=== PATIENT | male | born 1995 | race African-American/Black ===

== ENCOUNTER 2024-10-15 15:51 | Emergency (ER) | payer OTHER, SELFPAY ==
--- NOTE | ~2024-10-15 | XR_ITS ---
EXAMINATION: XR chest 2V Exam Date/Time: 10/15/2024 16:10 CDT HISTORY: chest pain Comparison: None. RESULT: Lines, tubes, and devices: None. Lungs and pleura: Clear. Cardiomediastinal silhouette: Stable. Other: No acute osseous or upper abdominal finding. IMPRESSION: No acute cardiopulmonary process. Reviewed, dictated and finalized at location K.
--- OUTSIDE RECORDS SUMMARY | 2024-10-15 15:54 | XMS_ITS | Encounter Summary ---
Author Name [facility] Organization [facility] [place] Address [address] [place] [id number] Selected Encounter This section includes the information on record at [place] for the Encounter. Date/Time Encounter Type Encounter Description Reason Pro vider Source Apr 25, 2024 11:00 AM Outpatient Encounter ADMIN PAT ACTIVTIES (MASNONCT) IHE Encounter Template Text not used by [facility] Encounter Notes: All associated encounter notes This section contains the clinical notes associated to the Encounter. Date/Time Encounter Note(s) Provider Source Apr 25, 2024 11:00 AM C & P EXAMINATION NOTE: LOCAL TITLE: C&P PROVIDER PROGRESS NOTE STANDARD TITLE: C & P EXAMINATION NOTE DATE OF NOTE: APR 25, 2024@11:00 ENTRY DATE: APR 25, 2024@10:07:21 AUTHOR: DEXTER CORMIER: URGENCY: STATUS: COMPLETED Headaches (including Migraine Headaches) Disability Benefits Questionnaire Name of patient/: suzanne field Is this DBQ being completed in conjunction with a [place] [id number], C&P Examination Request? [X] Yes [ ] No How was the examination completed? (check all that apply) [ ] In-person examination [X] Records reviewed [ ] Examination via approved video telehealth [ ] Other, please specify in comments box Comments: ODALYS and Evidence Review Indicate method used to obtain medical information to complete this document: [X] Review of available records in conjunction with an interview with the [place] (without in-person or telehealth examination) using the ODALYS process because the existing medical evidence supplemented with an interview provided sufficient information on which to prepare the questionnaire and such an examination would likely provide no additional relevant evidence. Evidence Review Evidence reviewed (check all that apply): [X] [place] electronic health record [X] [place] e-folder 1. Diagnosis Does the now have or has he/she ever been diagnosed with a headache condition? [X] Yes [ ] No [X] Migraine including migraine variants Date of diagnosis: 2021 2. Medical History a. Describe the history (including onset and course) of the 's headache conditions (brief summary): migraine headaches Classification: Neurological other System Type: INC Rated Name of [place] Disability: migraine headaches Diagnostic Code: 8100 Current Evaluation Percent: 0% Bilateral Code: N/A 07/09 note: Details of onset: is claiming service connection for migraine headache that occur 3-4 times week Denies x-ray. Denies associated symptoms of nausea or vomiting and last less than 1 day. Aggravated by occasional noise and light at times has to go into a dark room for his headaches to lie down approx 4 x per week missed work 9 x this last month due to headaches b. Does the 's treatment plan include taking medication for the diagnosed condition? [X] Yes [ ] No If yes, describe treatment (list only those medications used for the diagnosed condition): mckay 3. Symptoms a. Does the experience headache pain? [X] Yes [ ] No [X] Pulsating or throbbing head pain [X] Pain on both sides of the head b. Does the experience non-headache symptoms associated with headaches? (including symptoms associated with an aura prior to headache pain) [X] Yes [ ] No [X] Sensitivity to light [X] Sensitivity to sound c. Indicate duration of typical head pain [X] Less than 1 day d. Indicate location of typical head pain [X] Both sides of head 4. Prostrating attacks of headache pain Note: For VA purposes, the term prostrating means causing extreme exhaustion, powerlessness, debilitation or incapacitation with substantial inability to engage in ordinary activities. Please complete both questions 4A and 4B. a. Migraine / Non-Migraine- Does the [place] have characteristic prostrating attacks of migraine / non-migraine headache pain? [X] Yes [ ] No If yes, indicate frequency, on average, of prostrating attacks over the last several months: [ ] With less frequent attacks [ ] Once in 2 months [ ] Once every month [X] Greater than once per month b. Does the have completely prostrating and prolonged attacks of migraines/non-migraine pain? [ ] Yes [X] No 5. Other pertinent physical findings, complications, conditions, signs, symptoms and scars a. Does the [place] have any other pertinent physical findings, complications, conditions, signs or symptoms related to any conditions listed in the Diagnosis Section above? [ ] Yes [X] No b. Does the have any scars (surgical or otherwise) related to any conditions or to the treatment of any conditions listed in the Diagnosis Section above? [ ] Yes [X] No c. Comments, if any: No response provided. 6. Diagnostic testing Are there any other significant diagnostic test findings and/or results? [ ] Yes [X] No 7. Functional impact Does the [place]'s headache condition impact his or her ability to work? [X] Yes [ ] No If yes, describe the impact of the [place]'s headache condition, providing one or more examples: has missed 9 days of work this last month due to headaches 8. 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
--- OUTSIDE RECORDS SUMMARY | 2024-10-15 15:54 | XMS_ITS | Clinical Summary ---
Author Organization [facility] Address [address] [place] [address] Care Team Providers Care Recycling Manager Name Role Phone [facility] Primary Care Provider Source Comments [facility] [place],[facility] and [facility] Practices is amultiple site organization consisting of ambulatory clinics and hospital sitesin [place], [place]. This disclosure is being madepursuant to the Care Everywhere program and may not contain all information available regarding this patient. Last updated 18.[facility] [place] Allergies No known active allergies Medications * Be aware that medications may not be up to date on this document. Alwaysverify current medications with the patient. 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 Oxygen Saturation - - Inhaled Oxygen Concentration - - Weight 60.1 kg (132 lb 8 oz) 05/03/2011 8:43 AM 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 OPERATOR Height 164 cm (5' 4.57) 05/03/2011 8:44 AM 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 OPERATOR Body Mass Index 22.35 05/03/2011 8:43 AM 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 Plan of Treatment Health Maintenance Due Date Last Done Comments HIV SCREENING 12/27/2011 HEPATITIS C SCREENING 12/22/2014 DTAP/TDAP/TD VACCINES (1 - Tdap) 12/27/2015 HEPATITIS B VACCINE (1 of 3 - 19+ 3-dose series) 12/27/2015 COVID-19 VACCINE (1 - 2023-2 5 season) 2024 DEPRESSION SCREENING 05/16/2024 INFLUENZA VACCINE (Season Ended) 2025 ZOSTER VACCINE (1 of 2) 2046 HIB VACCINE Aged Out No longer eligi ble based on patient's age to complete this topic HPV VACCINE Aged Out No longer eligi ble based on patient's age to complete this topic MENINGOCOCCAL (Group B) VACC INE SHARED DECISION-MAKING Aged Out No longer eligibl e based on patient's age to complete this topic MENINGOCOCCAL GROUPS A/C/Y/W VACCINE Aged Out No longer eligible b ased on patient's age to complete this topic PNEUMOCOCCAL VACCINE Aged Out No long er eligible based on patient's age to complete this topic Care Teams Recycling Manager Relationship Specialty Start Date End Date [facility] [address] [place] [id number] PCP - General 05/03/11
--- OUTSIDE RECORDS SUMMARY | 2024-10-15 15:54 | XMS_ITS | Clinical Summary ---
Author Organization [facility] Address [address] [place] [address] Care Team Providers Care Director Loan Name Role Phone Unavailable Primary Care Provider Unavailabl e Social History Tobacco Use Types Packs/Day Years Used Date Smoking Tobacco: Never Assessed Sex and Gender Information Value Date Recorded Sex Assigned at Not on file Legal Sex Male 10:33 AM CDT Gender Identity Not on file Sexual Orientation Not on file Plan of Treatment Health Maintenance Due Date Last Done Comments Hepatitis C Virus (HCV) Screening 1996 TdaP Immunization 1996 Human Papillomavirus (HPV) Immunization (1 - Male 3-dose series) 12/27/2011 Influenza Immunization (#1) 2024 SARS-COV-2 Immunization ( - season) 2024 Respiratory Syncytial Virus (RSV) Immunization (Adult) (1 - 1-dose 75+ series) 12/27/2071 Hepatitis B Immunization Completed 998, 03/05/1997, 1996 DTaP/Tdap/Td Immunization Discontinued 2001, 03/31/1999, 08/22/1997, Additional history exists Meningococcal Immunization (ACWY) Aged Out No longer eligible based on patient's age to complete this topic Pneumococcal Immunization Combined Aged Out No longer eligible based on patient's age to complete this topic Rotavirus Immunization Aged Out No lo nger eligible based on patient's age to complete this topic Insurance
--- OUTSIDE RECORDS SUMMARY | 2024-10-15 15:54 | XMS_ITS | Continuity of Care Document ---
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 It does not include entries that were removed or entered in error. Problem Status Onset Date Problem Type Date of Resolution Comments Source Knee pain Active Condition Unknown Organization Hyperopia Active Condition Unknown Organization Obstructive sleep apnea (adult) (pediatric) Active Condition [address] [place] [address] Regular astigmatism Active Condition Unknown Organization Diagnosis: ICD-10-CM Z02.89 Encounter for other administrative examinations Active Diagnosis [facility] Medications Combined list of outpatient medications from Department of [facility] and [facility] facilities.Medications provided include 1) outpatient medications from the last 15 months, and 2) patient-reported medications. Medication Details Route Status Patient Instructions Prescription Expires Prescription Number Last Dispense Date Ordering Provider Order Date Order Qty Source Voltaren 1% topical gel See instruct ions, Apply 2 grams (upper extremit ies) or 4 grams (lower extremit ies) to affected area topicall y four times daily as needed for pain. Max total body dose of 32 grams per day, # 100 g, 3 total refill(s ), Swathi [facility], Pharmacy : [facility] Discont inued 11/29/20222022 100.0 0272C-A [facility] Allergies, Adverse Reactions, Alerts Combined list of allergies from Department of [facility] and Veterans Affairs facilities. It does not include entries that were removed or entered in error. Substance Category Reaction Severity Reaction type Status Date Reported Comments Source No Known Allergies Drug allergy (disorder) active 08/13/2022 Mark Sanchez [place] Immunizations Combined list of available immunizations from the Department of [facility] and Veterans Affairs facilities. Immunization Series Date Given Administered By Site Reaction Lot Number CVX Code Drug Margin Trimmer Status Comments Source anthrax vaccine 5 2021 [id number] [employer] [place] (MIP) complet ed anthrax vaccine DoD Influenza, injectable, quadrivalent, preservative free 1 2020 [id number] (IDB) complet ed Influenza , injectabl e, quadrival ent, preservat darya free DoD SARS-COV-2 (COVID-19) vaccine, mRNA, spike protein, LNP, preservative free, 30 mcg/0.3mL dose 1 2020 UNK 208 Unknown (UNK) Not Given SARS-COV- 2 (COVID-19 ) vaccine, mRNA, spike protein, LNP, preservat darya free, 30 mcg/0.3mL dose DoD Influenza, injectable, quadrivalent, preservative free 1 2019 [id number] 150 Seqirus (SEQ) complet ed Influenza , injectabl e, quadrival ent, preservat darya free DoD influenza, injectable, quadrivalent 2018 [id number] 158 Seqirus complet ed influenza , injectabl e, quadrival ent 03/28/19 Given Ambulat ory Pharmac y influenza, injectable, quadrivalent, contains preservative 1 2018 [id number] 158 Seqirus (SEQ) complet ed influenza , injectabl e, quadrival ent, contains preservat darya DoD anthrax vaccine 2018 zzLef t Arm [id number] 24 Emergent Biosolutions complet ed anthrax vaccine 11/28/18 Given Ambulat ory Pharmac y anthrax vaccine 5 2018 MOE CLARK [id number] 24 [employer] [place] (MIP) complet ed anthrax vaccine DoD anthrax vaccine 2017 zzLef t Arm [id number] 24 [employer] complet ed anthrax vaccine 04/24/18 Given Ambulat ory Pharmac y anthrax vaccine 4 2017 [id number] 24 [employer] [place] (MIP) complet ed anthrax vaccine DoD influenza, injectable, quadrivalent- pf 2017 [id number] 150 Seqirus complet ed influenza , injectabl e, quadrival ent-pf 04/05/18 Given Ambulat ory Pharmac y Influenza, injectable, quadrivalent, preservative free 1 2017 [id number] 150 Seqirus (SEQ) comple t ed Influenza , injectabl e, quadrival ent, preservat darya free DoD hepatitis B adult vaccine 2017 zzRig ht Arm [id number] 43 GlaxoSmithKli ne complet ed hepatitis B adult vaccine 12/30/17 Given Ambulat ory Pharmac y hepatitis B vaccine, adult dosage 3 2017 SAMRA CORTES [id number] 43 [facility] hepatitis B vaccine, adult dosage DoD Slovenian Encephalitis IM 2017 [id number] 134 Novartis Pharmaceutica ls complet ed Slovenian Encephali tis IM 10/28/17 Given Ambulat ory Pharmac y anthrax vaccine 2017 zzLef t Arm [id number] 24 [employer] complet ed anthrax vaccine 10/28/17 Given Ambulat ory Pharmac y vaccinia (smallpox) vaccine 2017 [id number] 75 Sanofi Pasteur Incorporated complet ed vaccinia (smallpox ) vaccine 10/28/17 Given Ambulat ory Pharmac y anthrax vaccine 3 2017 [id number] 24 [employer] [place] (MIP) complet ed anthrax vaccine DoD vaccinia (smallpox) vaccine 1 2017 [id number] 75 (APRIL) complet ed vaccinia (smallpox ) vaccine DoD Slovenian Encephalitis vaccine for intramuscular administratio n 2 2017 [id number] 0E 134 Novartis Pharmaceutica l Gabriel. (NOV) complet ed [place]ian Encephali tis vaccine for intramusc ular administr ation DoD anthrax vaccine 2017 zzRig ht Arm [id number] 24 [employer] complet ed anthrax vaccine 09/26/17 Given Ambulat ory Pharmac y Slovenian Encephalitis IM 2017 zzRig ht Arm [id number] 9E 134 Valneva complet ed Slovenian Encephali tis IM 09/26/17 Given Ambulat ory Pharmac y typhoid Vi capsular polysaccharid e vac 2017 zzRig ht Arm [id number] 101 sanofi pasteur complet ed typhoid Vi capsular polysacch aride vac 09/26/17 Given Ambulat ory Pharmac y anthrax vaccine 2 2017 Unknown, Provider [id number] [employer] [place] (MIP) complet ed anthrax vaccine DoD typhoid Vi capsular polysaccharid e vaccine 1 2017 ALIN SOLER [id number] 101 Sanofi Pasteur (PMC) complet ed typhoid Vi capsular polysacch aride vaccine DoD Slovenian Encephalitis vaccine for intramuscular administratio n 1 2017 ALIN SOLER [id number] [address]E [address] [facility] (INT) complet ed Slovenian Encephali tis vaccine for intramusc ular administr ation DoD hepatitis B adult vaccine 2017 [id number] 43 GlaxoSmithKli ne complet ed hepatitis B adult vaccine 06/29/17 Given Ambulat ory Pharmac y hepatitis B vaccine, adult dosage 2 2017 [id number] 43 SmithKline (SKB) complet ed hepatitis B vaccine, adult dosage DoD tetanus, diphtheria, acellular pertu is 2017 [id number] 115 GlaxoSmithKli ne complet ed tetanus, diphtheri a, acellular pertussis 05/27/17 Given Ambulat ory Pharmac y meningococcal A,C,Y,W-135 (MCV4P) 2017 [id number] 114 sanofi pasteur complet ed meningoco ccal A,C,Y,W-1 35 (MCV4P) 05/27/17 Given Ambulat ory Pharmac y poliovirus vaccine, inactivated 2017 [id number] 10 sanofi pasteur complet ed polioviru s vaccine, inactivat ed 05/27/17 Given Ambulat ory Pharmac y adenovirus vaccine, live 2017 [id number] 143 Teva Pharmaceutica ls complet ed adenoviru s vaccine, live 05/27/17 Given Ambulat ory Pharmac y hepatitis B adult vaccine 2017 [id number] 43 GlaxoSmithKli ne complet ed hepatitis B adult vaccine 05/27/17 Given Ambulat ory Pharmac y poliovirus vaccine, inactivated 1 2017 [id number] 10 Sanofi Pasteur (PMC) complet ed polioviru s vaccine, inactivat ed DoD hepatitis B vaccine, adult dosage 1 2017 [id number] 43 SmithKline (SKB) complet ed hepatitis B vaccine, adult dosage DoD meningococcal polysaccharid e (groups A, C, Y and W-135) diphtheria toxoid conjugate vaccine (MCV4P) 1 2017 [id number] 114 Sanofi Pasteur (PMC) complet ed meningoco ccal polysacch aride (groups A, C, Y and W-135) diphtheri a toxoid conjugate vaccine (MCV4P) DoD tetanus toxoid, reduced diphtheria toxoid, and acellular pertu is vaccine, adsorbed [id number] [place], [place] [address] (SKB) complet ed tetanus toxoid, reduced diphtheri a toxoid, and acellular pertussis vaccine, adsorbed DoD Adenovirus, type 4 and type 7, live, oral 1 2017 [id number] 143 [facility] (BRR) complet ed Adenoviru s, type 4 and type 7, live, oral DoD Influenza, injectable, Madin Ade Canine Kidney, quadrivalent with preservative 1 2017 [id number] 186 Seqirus (SEQ) comple t ed Influenza , injectabl e, Madin [place] Canine Kidney, quadrival ent with preservat darya DoD measles, mumps and rubella virus vaccine 1 2017 UNK 03 Unknown (UNK) Not Given measles, mumps and rubella virus vaccine DoD varicella virus vaccine 1 2017 UNK 21 Unknown (UNK) Not Given varicella virus vaccine DoD hepatitis A vaccine, adult dosage 2017 UNK 52 Unknown (UNK) Not Given hepatitis A vaccine, adult dosage DoD Results Combined list of recent chemistry, hematology and other laboratory results from Department of [employer] and Veterans Affairs, ranging from 15 months to all on record, depending upon the facility. Order Name Results Value Reference Range Date Interpretation Specimen Comments Source Chemistry Iron 74 ug/dL 65 - 175 05/26 N 0049A-A [facility] Chemistry Ferritin Lvl 209.0 ng/mL 8.0 - 388.0 05/26 N 0049A-A [facility] Chemistry TSH, Sensitive 1.977 uIU/mL 0.490 - 4.670 05/26 N 0049A-A [facility] Vital Signs Combined list of inpatient and outpatient Vital Signs from Department of [employer] and Veterans Affairs, ranging from 12 months to all on record, depending upon the facility. Vital Sign Value Date Comments Source Systolic Blood Pressure 99 mm[Hg] 04/01/2022 16:12:[address] [place] [address] Air Field Diastolic Blood Pressure 56 mm[Hg] 04/01/2022 16:12:[address] [place] [address] Air [facility] Temperature Oral 36.7 Kari 04/01/2022 16:12:00 [facility] BP Site Right arm 04/01/2022 16:12:00 [facility] Blood Pressure Manual Automatic 04/01/2022 16:12:00 [facility] Air [facility]ly [facility] Mean Arterial Pressure, Calc 70 mm[Hg] 04/01/2022 16:12:00 [facility] Air Formerly [facility] Peripheral Pulse Rate 61 bpm 04/01/2022 16:12:00 [facility] Air Former[facility] Mean Arterial Pressure, Calc 69 mm[Hg] 06/22/2022 18:58:00 [facility] Peripheral Pulse Rate 59 bpm 06/22/2022 18:58:00 [facility] Air [facility] Respiratory Rate 12 br/min 06/22/2022 18:58:00 [facility] BP Site Right arm 06/22/2022 18:58:00 [facility] Blood Pressure Manual Automatic 06/22/2022 18:58:00 [facility] Systolic Blood Pressure 102 mm[Hg] 06/22/2022 18:58:00 [facility] Air Former[facility] Diastolic Blood Pressure 52 mm[Hg] 06/22/2022 18:58:00 [facility] Temperature Oral 36.6 Kari 02/18/2022 17:36:00 [facility] Air Former[facility] Mean Arterial Pressure, Calc 72 mm[Hg] 02/18/2022 17:36:00 [facility] Air [facility] Peripheral Pulse Rate 56 bpm 02/18/2022 17:36:00 [facility] Air Field Systolic Blood Pressure 94 mm[Hg] 02/18/2022 17:36:00 [facility] Air Field Diastolic Blood Pressure 61 mm[Hg] 02/18/2022 17:36:00 [facility] Air Former[facility] Blood Pressure Manual Automatic 02/18/2022 17:36:00 [facility] Air Former[facility] BP Site Right arm 02/18/2022 17:36:[address] [place] [address] Air Field Respiratory Rate 12 br/min 02/18/2022 17:36:[address] [place] [address] Air [facility]ly [facility] Mean Arterial Pressure, Calc 72 mm[Hg] 08/31/2022 14:19:00 [facility] Air Former[facility] Peripheral Pulse Rate 78 bpm 08/31/2022 14:19:00 [facility] Air Field Respiratory Rate 14 br/min 08/31/2022 14:19:00 [facility] Air Former[facility] BP Site Right arm 08/31/2022 14:19:00 [facility] Systolic Blood Pressure 117 mm[Hg] 08/31/2022 14:19:00 [facility] Former[facility] Diastolic Blood Pressure 50 mm[Hg] 08/31/2022 14:19:[address] [place] [address] Air Formerly [facility] Encounters Combined list of: 1) Encounters from Department of Veterans Affairs facilities going backup to the last 18 months, not all VA inpatient encounters are included; 2) Encounters from the Department of Defense facilities going backup to 280 months. Location Location Details Encounter Type Encounter Number Reason For Visit Attending Provider ADM Date DC Date Status Disposition Source [facility] C Immunizat ions (Post)) OUTPATIENT [id number] RAJAN Sheffield 05/27 Released w/o Limitations [facility](M C Immuniz ations (Post)) [facility] Ambulator y) OUTPATIENT [id number] Notes Entered by: LIZZ MIRANDA 13 Jun 2017 0732 ------- ------- ------- ------- -- SHARON Reddy 06/13 Released with Work/Duty Limitations [facility](T Ambulat ory) [facility]([address]) OUTPATIENT [id number] Notes Entered by: SUJATA MILLER 02 Sep 2017 0712 ------- ------- ------- ------- -- Self Care SUJATA MILLER 09/02 Released w/o Limitations [facility]([address]) [facility]([address]) OUTPATIENT [id number] Notes Entered by: SUJATA MILLER 20 Sep 2017 0606 ------- ------- ------- ------- -- right SHRUTI Vaughn 09/20 Released w/o Limitations [facility]([address]) [facility]([address]) OUTPATIENT [id number] Notes Entered by: ANDRÉS JEAN BAPTISTE 26 Sep 2017 0854 ------- ------- ------- ------- -- [place] [facility] SHRUTI Aguilar 09/26 Released w/o Limitations [facility]([address]) [facility]([address]) OUTPATIENT [id number] Notes Entered by: CADEN CHANDLER 28 Sep 201728 ------- ------- ------- ------- -- ALIN Garcia 09/28 Released w/o Limitations [facility]([address]) [facility]([address]) OUTPATIENT [id number] Notes Entered by: ANGELES BERMUDEZ 11 Oct [id number] ------- ------- ------- ------- -- Ankle and hunter pain ABRAM JAMA 10/11 Released w/o Limitations [facility]([address]) [facility] GUERLINE D Y[facility]IR-[facility] Y[facility]( 1RC) OUTPATIENT [id number] In-proc essing G6PD ANTHRAX JEV SPX G6PD pha LISSETTE PEREZ 10/28 Released w/o Limitations [facility]IR -PYONGT AEK(1RC ) [facility]( [facility] S01 B Silver) OUTPATIENT [id number] Notes Entered by: WILLI CAVAZOS ON [facility] AN 2017 1001 ------- ------- ------- ------- -- PHA WALK IN LASHAE JACKSON A 12/26 Released w/o Limitations [facility] -[facility] S01 B Silver) [facility]DE MOLINAGOOD-P YONGTAEK( Immunizat ions [place]) OUTPATIENT [id number] Notes Entered by: LETICIA CORTES 30 Dec 2017 1003 ------- ------- ------- ------- -- Hep B SAMRA CORTES 12/30 Released w/o Limitations [facility] MOLIANGOOD -[facility]GT [facility]K(Imm unizati ons [place] ) [facility]DE Chicas YAHIR-[facility]( [facility] S01 B Silver) OUTPATIENT [id number] shaving profile LASHAE JACKSON A 01/09 Released w/o Limitations [facility] -[facility]GT [facility] S01 B Silver) [facility] Chicas [facility]( [facility] S01 B Silver) OUTPATIENT [id number] 11en/ri ght ankle sprain GORGE AMAYA 02/07 Released w/o Limitations [facility] -[facility] S01 B Silver) [facility] Chicas [facility]( Hearing Program [place]) OUTPATIENT [id number] Hearing Test YESICA FARIAS 02/10 Released w/o Limitations [facility] -[facility](Hea ring Program [place] ) [facility]DE Chicas [facility]( [facility] S01 B Silver) OUTPATIENT [id number] update profile REA FINNEGAN 02/21 Released w/o Limitations [facility] GUERLINE Chicas YAHIR -PYONGT AEK([facility] S01 B Silver) CLOTILDE GUERLINE Chicas Y[facility]IR-P [facility]( [facility] [place]) OUTPATIENT [id number] ALEXUS Ramirez 06/06 Released w/o Limitations [facility] GUERLINE Chicas [facility]IR -PYONGT AEK(Opt ometry [facility] [place] ) CLOTILDE RUBIOIAN Aviva Y[facility]IR-P [facility]( [facility] S01 B Silver) TELE CONSULT [id number] Notes Entered by: Kristal MENDOZA 01 Sep 2018 1258 ------- ------- ------- ------- -- DA Form 5118 GRACE WEAVER 09/01 Referred for Appointment [facility]DE Chicas [facility] -[facility] S01 B Silver) CLOTILDE RUBIOIAN [facility]( [facility] S01 B Silver) TELE CONSULT [id number] Notes Entered by: Kristal MENDOZA 25 Sep 2018 1025 ------- ------- ------- ------- -- DA Form 5118 GRACE WEAVER 09/25 Released to Self Care [facility]DE MOLINAGOOD -PYONGT AEK([facility] S01 B Silver) [place] Physical [facility] come [facility]) OUTPATIENT [id number] PHILLIP HARVEY 11/21 Released w/o Limitations [place] Phys[place] [place] OUTPATIENT [id number] Immuniz atlauren MILLER JAQUAN CLARE 11/28 Released w/o Limitations [place] [place] [facility] OUTPATIENT [id number] REE, EEG TECH' S LICENSE DANN FONG 12/19 Released w/o Limitations [place] [place] OUTPATIENT [id number] annual hearing TAQUERIACLAUDIA 01/22 Released w/o Limitations [place] OUTPATIENT [id number] follow up SLY LAMAR 01/25 Released w/o Limitations [place] [place] OUTPATIENT [id number] PHA DANN ROBLES 02/21 [place]ased [place]/o Limitations [place] [place] [place] [place] OUT[place]IENT [id number] MOD: possibl e MELISA BARBOUR 04/20 Released w/o Limitations [place] [place] [place] [place] TELE CONSULT [id number] Notes Entered by: MELISA HOLLIS 24 Apr 2019 0832 ------- ------- ------- ------- -- Lab Results MELISA HOLLIS 04/24 [place] [place] [place] [place] OUT[place]IENT [id number] MOD: treatme nt for std VILMA CASTAÑEDA 04/24 [place]ased [place]/o Limitations [place] [place] OUT[place] [id number] DA JONES 08/11 Released w/o Limitations [place] [place] OUTPATIENT [id number] SICKCAL L: RUEL F/U RAUL CASTRO 08/13 Released w/o Limitations [place] [place] [place] OUTPATIENT [id number] Notes Entered by: FAREED LANGSTON 19 Dec 2019 0835 ------- ------- ------- ------- -- ANNUAL VANDANA VILLAR 12/18 [place]ased w/o Limitations [place] OUTPATIENT [id number] CLAUDIA MENG 01/12 Released w/o Limitations [place]) OUTPATIENT [id number] Notes Entered by: Narciso BARAJAS 27 Jan 2021 0816 ------- ------- ------- ------- -- INPROCE DION PEREZ 01/27 Released w/o Limitations [place]) [place] S[facility]C [place]) OUTPATIENT [id number] Chest Pain PHAM TRAVON W 05/01 Released w/o Limitations [place] [place]) [place] [place] OUTPATIENT [id number] Sleep issues NATHSANTIAGOEL W 07/07 Released w/o Limitations [place] [place] [place] OUTPATIENT [id number] Notes Entered by: RAJESH WILKERSON 28 Jul 2021 1008 ------- ------- ------- ------- -- IMM DAVID WILKERSON 07/28 [facility]o Limitations [facility] [place] [place] [place] OUTPATIENT [id number] Bilater al Foot Pain PHAM TRAVON W 09/29 Released w/o Limitations [place]([facility] [place]([facility] [place]) OUTPATIENT [id number] bug bite TRAVON NATH 10/08 Released w/o Limitations [place]([facility] S[facility] [place]) [facility] Outpatient Encounter [id number] 04/25 [facility] Encounter [id number] Diagnos is: ICD-10- CM Z02.89 Encount er for other adminis trative examina tions Kay CORMIER 04/25 [facility] Procedures Combined list of: 1) Procedures from Department of Veterans Affairs facilities going back up to thelast 18 months, not all VA non-surgical procedures are included; 2) All procedures from the Department of Defense facilities. Procedure Procedure Type Code Date Perfomer Comments Sourc e No data available for this section Ambulato ry Pharmacy IMMUNIZATION ADMINISTRATION (INCLUDES PERCUTANEOUS, INTRADERMAL, SUBCUTANEOUS, OR INTRAMUSCULAR INJECTIONS); EACH ADDITIONAL VACCINE (SINGLE OR COMBINATION VACCINE/TOXOID) 2017 DoD INFLUENZA VIRUS VACCINE, TRIVALENT (IIV3), SPLIT VIRUS, PRESERVATIVE FREE, 0.5 ML DOSAGE, FOR INTRAMUSCULAR USE 2017 DoD HEARING SERVICE, MISCELLANEOUS 2017 DoD BRIEF EMOTIONAL/BEHAVIOR AL ASSESSMENT (EG, DEPRESSION INVENTORY, ATTENTION-DEFICIT/ HYPERACTIVITY DISORDER [ADHD] SCALE), WITH SCORING AND DOCUMENTATION, PER STANDARDIZED INSTRUMENT 2021 DoD ANTHRAX VACCINE, FOR SUBCUTANEOUS OR INTRAMUSCULAR USE 2021 [facility] BRIEF EMOTIONAL/BEHAVIOR AL ASSESSMENT (EG, DEPRESSION INVENTORY, ATTENTION-DEFICIT/ HYPERACTIVITY DISORDER [ADHD] SCALE), WITH SCORING AND DOCUMENTATION, PER STANDARDIZED INSTRUMENT 2020 DoD BRIEF EMOTIONAL/BEHAVIOR AL ASSESSMENT (EG, DEPRESSION INVENTORY, ATTENTION-DEFICIT/ HYPERACTIVITY DISORDER [ADHD] SCALE), WITH SCORING AND DOCUMENTATION, PER STANDARDIZED INSTRUMENT 2020 DoD PSYCHOTHERAPY, 30 MINUTES WITH PATIENT 2020 DoD BLOOD PRESSURE MEASURED (CKD)(DM) 2020 DoD TELE ASSESS & MGT SRV PROV QUAL NONPHYS HLTH CARE PRO TO EST PAT,PARENT,GUARD NOT ORIG REL ASSESS & MGT SRV PROV W/IN PREV 7 DAYS NOR LEAD ASSESS & MGT SRV/PX W/IN NXT 24 HR/SOON APT;5-10 MIN MED DIS 2018 DoD TELE ASSESS & MGT SRV PROV QUAL NONPHYS HLTH CARE PRO TO EST PAT,PARENT,GUARD NOT ORIG REL ASSESS & MGT SRV PROV W/IN PREV 7 DAYS NOR LEAD ASSESS & MGT SRV/PX W/IN NXT 24 HR/SOON APT;5-10 MIN MED DIS 2018 DoD SCREENING TEST OF VISUAL ACUITY, QUANTITATIVE, BILATERAL 2018 DoD PURE TONE AUDIOMETRY (THRESHOLD), AUTOMATED; AIR ONLY 2017 DoD IMMUNIZATION ADMINISTRATION (INCLUDES PERCUTANEOUS, INTRADERMAL, SUBCUTANEOUS, OR INTRAMUSCULAR INJECTIONS); 1 VACCINE (SINGLE OR COMBINATION VACCINE/TOXOID) 2017 [facility] COLLECTION OF VENOUS BLOOD BY VENIPUNCTURE 2017 DoD PATIENT EDUCATION, NOT OTHERWISE CLASSIFIED, NON-PHYSICIAN PROVIDER, GROUP, PER SESSION 2020 [facility] EAR PROTECTOR ATTENUATION MEASUREMENTS 2019 [facility] CRUTCHES UNDERARM, OTHER THAN WOOD, ADJUSTABLE OR FIXED, PAIR, WITH PADS, TIPS AND HANDGRIPS 2019 DoD SCREENING TEST OF VISUAL ACUITY, QUANTITATIVE, BILATERAL 2018 [facility] EAR MOLD/INSERT, NOT DISPOSABLE, ANY TYPE 2018 [facility] PATIENT EDUCATION, NOT OTHERWISE CLASSIFIED, NON-PHYSICIAN PROVIDER, GROUP, PER SESSION 2018 [facility] DETERMINATION OF REFRACTIVE STATE 2018 DoD IMMUNIZATION ADMINISTRATION (INCLUDES PERCUTANEOUS, INTRADERMAL, SUBCUTANEOUS, OR INTRAMUSCULAR INJECTIONS); 1 VACCINE (SINGLE OR COMBINATION VACCINE/TOXOID) 2018 [facility] Ophthalmological New Patient Start Comprehensive Care Ophthalmological New Patient Start Comprehensive Care [id number] 2018 DANN FONG [facility] Determination Of Refractive State Determination Of Refractive State 40904 2018 DANN FONG [facility] Supervised Injection Intramuscular Supervised Injection Intramuscular 08305 2018 JAQUAN MILLER [facility] Immunization Administration One Vaccine Immunization Administration One Vaccine 03429 2018 JAQUAN MILLER [facility] Non-Physician Phone Call To Patient/Provider Brief (5-10min) Non-Physician Phone Call To Patient/Provider Brief (5-10min) [id number] 2018 MEG EDWARDSALEKSANDER ALVARADO [facility] Non-Physician Phone Call To Patient/Provider Brief (5-10min) Non-Physician Phone Call To Patient/Provider Brief (5-10min) [id number] 2018 GRACE WEAVER [facility] Screening Test Of Visual Acuity, Quantitative, Bilateral Screening Test Of Visual Acuity, Quantitative, Bilateral 05228 2018 ALEXUS SOLO [facility] Threshold Audiogram (Pure Tone) Automated Threshold Audiogram (Pure Tone) Automated [id number] 2017 YESICA FARIAS [facility] Immunization Administration One Vaccine Immunization Administration One Vaccine 49490 2017 SAMRA CORTES -Hepatitis B Vaccine (Active); 20 Years and Above x 1 - Name of vaccine HEP-B. Dose 1ML. Route IM. Site RD. Lot number :[id number]. Expiration date : 01/18/2020. Margin Trimmer :[email or web address]. Administrating personnel Zara Nye. Administrating location [facility]. Zip [address]. VIS date 12/03/2015. VIS date and VIS provide to patient prior to Immunizations. Vaccine education given, patient verbalized understanding. [facility] Venipuncture Venipuncture 67265 2017 TORIBIO REID [facility] Vaccines Viral Slovenian Encephalitis Inactivated, Intramuscular Vaccines Viral Slovenian Encephalitis Inactivated, Intramuscular 24240 2017 JEANETTE [facility] Vaccines Vaccines [address] [facility] Immunization Administration One Vaccine Immunization Administration One Vaccine [address] [facility] Immunization Administration Each Additional Vaccine Immunization Administration Each Additional Vaccine 54014 2017 JEANETTE [facility] Vaccines Viral Slovenian Encephalitis Inactivated, Intramuscular Vaccines Viral Slovenian Encephalitis Inactivated, Intramuscular 11697 2017 ALIN SOLER Slovenian Encephalitis IM; Series #: 1; .5 mL; IM; Right Arm; Mfg: DidLog; Lot: [id number]. [facility] Immunization Administration One Vaccine Immunization Administration One Vaccine 69563 2017 ALIN SOLER [facility] Immunization Administration Each Additional Vaccine Immunization Administration Each Additional Vaccine 22735 2017 ALIN SOLER [facility] Vaccines Vaccines 82052 2017 ALIN SOLER Vaccinia (Smallpox); Series #: 1; .1 mL; Other; Right Arm; Mfg: Corimmun; Lot: [id number]. [facility] Typhoid Vaccine Vi Capsular Polysaccharide, For Intramus Use Typhoid Vaccine Vi Capsular Polysaccharide, For Intramus Use 38193 2017 ALIN SOLER Typhoid, ViCPs; Series #: 1; .5 mL; IM; Right Arm; Mfg: Sanofi Pasteur; Lot: [id number]. [facility] Immunization Admin Intranasal / Oral Each Additional Vaccine Immunization Admin Intranasal / Oral Each Additional Vaccine 68649 2017 [facility] Vaccines Adenovirus Type 4 Live, For Oral Use Vaccines Adenovirus Type 4 Live, For Oral Use 67516 2017 [facility] Vaccines Adenovirus Type 7 Live, For Oral Use Vaccines Adenovirus Type 7 Live, For Oral Use 95920 2017 [facility] Immunization Administration Each Additional Vaccine Immunization Administration Each Additional Vaccine 33113 2017 [facility] Vaccines Viral Polio, Inactivated (Salk) Vaccines Viral Polio, Inactivated (Salk) 80777 2017 [place] Tdap Vaccine Tdap Vaccine 15770 2017 [place] [facility] Immunization Administration One Vaccine Immunization Administration One Vaccine 49947 2017 [place] [facility] Threshold Audiogram (Pure Tone) Automated Threshold Audiogram (Pure Tone) Automated 0208T CLAUDIA MENG [facility] Patient education, not otherwise cla ified, non-physician provider, group, per se ion CLAUDIA MENG [facility] Ear mold/insert, not disposable, any type SLY LAMAR [facility] Waiver services; not otherwise specified (NOS) PORTIA LIVINGSTON [facility] Ear Protector Attenuation Measurements Ear Protector Attenuation Measurements 03744 VANDANA VILLAR [facility] Psychiatric Evaluation Review of Records and Reports Psychiatric Evaluation Review of Records and Reports 64344 ALFA PATRICIA [facility] A e ment & Intervention Blood Pre ure Measured Assessment & Intervention Blood Pressure Measured DION HERNANDEZ [facility] Immunization Administration One Vaccine Immunization Administration One Vaccine 58491 DAVID WILKERSON [facility] Social History Combined list of available smoking, tobacco, and other social history from Department of Defense and Veterans Affairs facilities. Social History Type Response Date Comment Sourc e Sex Representation Male (finding) 01/30/2020 Un known Organization Tobacco Never-cigarette user Cigarette use:. Never-other tobacco user (not cigarettes) Other Tobacco use:. Ambulatory Pharmacy Sexual Orientation Ambula tory Pharmacy Gender identity Ambulator y Pharmacy This section is an empty social history section. [facility] Assessment and Plan Combined list of future care activities from Department of Defense and Veterans Affairs facilities (e.g., assessment and plan notes, appointments, orders, and referrals). Additional future care activities may be listed in the Plan of Care section. Result Assessment and Plan Date Source Assessment and Plan Extracted from:Title : Chris Riley [facility] - eye exam/myopia Author: SUJATA DAVID OD Date: 11/29/22 1. H ypermetropia, left eye No glasses needed at this time due to good entering uncorrected [facility] at distance and near, minimal refractive error, and no patient complaints. Good ocular health on u ndilated f undus exam. Recommend patient return to clinic in 12-18 months for comprehensive eye exam. 2. R egular astigmatism, left eye * see plan for h yperopia Extracted from:Title: 2-3 [facility] Clinic Note Author: STEPHEN SCHAEFFER MD Date: 08/31/22 1. O bstructive sleep apnea (adult) (pediatric) Morning headaches are likely secondary to uncontrolled sleep apnea. P atient counseled to u se his CPAP machine consistently and daily. Agree with Excedrin Migraine o r other oxok-cxa-brutyrr medication p er patient preference. Patient also counseled to increase his hydration. Symptoms unlikely to be migraines. Stephen Schaeffer M.D. CPT, , [facility], [place] Board of Internal Medicine Certified, Flight Surgeon 2-3 AVN REGT, [facility] [employer], [address] [place] [address] Division, [place], [place] Extracted from:Title: Knee Pain Author: MELANIE WILKERSON PA-C Date: 06/22/22 1. P ain in left knee 26 y/o ADM with 3x years of anterior atraumatic knee pain. Pain worsened by knee flexion/ extension activities. SM denies instability or catching/ locking of knee. No pain with hyperextension or maximal flexion. PE not indicative of ligamentous or meniscal injury. S/Sx consistent with PFPS. Previously referred to PT who recommended their Running Class; SM was lost to f/u. Will place 2nd referral. No profile needed at this time. Ordered: Referral Request 2.0 2. P ain in right knee Ordered: Referral Request 2.0 Extracted from:Title: 2-3 [facility] Clinic Note Author: STEPHEN SCHAEFFER MD Date: 04/01/22 1. I nsomnia 26-year-old male here for difficulty falling asleep a nd staying asleep. Occasionally when he takes melatonin he misses formation because of excessive drowsiness. He endorses loud snoring and some apneic e vents. His stop-bang score is greater than 4. He also endorse some recent stressors in his life, in the family, and he missed the funerals. He is engaged in behavioral health for therapy. Will evaluate him with a sleep study. Patient counseled on sleep hygiene. Opportunity for questions was provided and all questions were answered.? Orders: Referral Request 2.0 Stephen Schaeffer M.D. [facility], [facility], Internal Medicine Flight Surgeon 2-3 [facility], [facility] [employer], [address] [place] [address] Division, [place], [place] Extracted from:Title: 2-3 Clinic Note Author: STEPHEN SCHAEFFER MD Date: 02/18/22 Knee pain 26 y/o M w/ non-traumatic knee pain associated with running. Will treat with voltaren gel. Will also refer him to PT for strengthening and conditioning exercises. Ordered: diclofenac topical(Voltaren 1% topical gel), See instructions, Apply 2 grams (upper extremities) or 4 grams (lower extremities) to affected area topically four times daily as needed for pain. Max total body dose of 32 grams per day, # 100 g, 3 total refill(s), Maintenance, Apply 2 grams (upper e... Referral Request 2.0 Stephen Schaeffer M.D. [facility], [facility], Internal Medicine, Flight Surgeon 2-3 [employer], [address] [place] [address] Extracted from:Title: Office Clinic Note Author: LILO COOL AuD Date: 12/03/21 EXAM, FORMAL OCCUPATIONAL HEALTH PROGRAM INCLUDING HEARING CONSERVATION PROGRAM, PERIODIC FOR CONTINUED SURVEILLANCE FOR OCCUPATIONAL WORKPLACE EXPOSURE 10/15/[address] [place] [address] [facility] Assessment and Plan Extracted from:Title : Chris Riley AA - eye exam/myopia Author: SUJATA DAVID OD Date: 11/29/22 1. H ypermetropia, left eye No glasses needed at this time due to good entering uncorrected VA at distance and near, minimal refractive error, and no patient complaints. Good ocular health on u ndilated f undus exam. Recommend patient return to clinic in 12-18 months for comprehensive eye exam. 2. R egular astigmatism, left eye * see plan for h yperopia Extracted from:Title: 2-3 [facility] Clinic Note Author: STEPHEN SCHAEFFER MD Date: 08/31/22 1. O bstructive sleep apnea (adult) (pediatric) Morning headaches are likely secondary to uncontrolled sleep apnea. P atient counseled to u se his CPAP machine consistently and daily. Agree with Excedrin Migraine o r other ahqh-uip-zblyboc medication p er patient preference. Patient also counseled to increase his hydration. Symptoms unlikely to be migraines. Stephen Schaeffer M.D. [facility], , [facility], [place] Board [employer] Internal Medicine Certified, Flight Surgeon 2-3 [employer], [address] [place] [address] Extracted from:Title: Knee Pain Author: MELANIE WILKERSON PA-C Date: 06/22/22 1. P ain in left knee 26 y/o ADM with 3x years of anterior atraumatic knee pain. Pain worsened by knee flexion/ extension activities. SM denies instability or catching/ locking of knee. No pain with hyperextension or maximal flexion. PE not indicative of ligamentous or meniscal injury. S/Sx consistent with PFPS. Previously referred to PT who recommended their Running Class; SM was lost to f/u. Will place 2nd referral. No profile needed at this time. Ordered: Referral Request 2.0 2. P ain in right knee Ordered: Referral Request 2.0 Extracted from:Title: 2-3 [facility] Clinic Note Author: STEPHEN SCHAEFFER MD Date: 04/01/22 1. I nsomnia 26-year-old male here for difficulty falling asleep a nd staying asleep. Occasionally when he takes melatonin he misses formation because of excessive drowsiness. He endorses loud snoring and some apneic e vents. His stop-bang score is greater than 4. He also endorse some recent stressors in his life, in the family, and he missed the funerals. He is engaged in behavioral health for therapy. Will evaluate him with a sleep study. Patient counseled on sleep hygiene. Opportunity for questions was provided and all questions were answered.? Orders: Referral Request 2.0 Stephen Schaeffer M.D. [facility], [facility], Internal Medicine Flight Surgeon 2-3 [employer] [employer], [address] [place] [address] Extracted from:Title: 2-3 Clinic Note Author: STEPHEN SCHAEFFER MD Date: 02/18/22 Knee pain 26 y/o M w/ non-traumatic knee pain associated with running. Will treat with voltaren gel. Will also refer him to PT for strengthening and conditioning exercises. Ordered: diclofenac topical(Voltaren 1% topical gel), See instructions, Apply 2 grams (upper extremities) or 4 grams (lower extremities) to affected area topically four times daily as needed for pain. Max total body dose of 32 grams per day, # 100 g, 3 total refill(s), Maintenance, Apply 2 grams (upper e... Referral Request 2.0 Stephen Schaeffer M.D. [facility], [facility], Internal Medicine, Flight Surgeon 2-3 [employer], [address] [place] [address] Extracted from:Title: Office Clinic Note Author: LILO COOL AuD Date: 12/03/21 EXAM, FORMAL OCCUPATIONAL HEALTH PROGRAM INCLUDING HEARING CONSERVATION PROGRAM, PERIODIC FOR CONTINUED SURVEILLANCE FOR OCCUPATIONAL WORKPLACE EXPOSURE 10/15/[address] [place], [place] [address] Functional Status Combined list of recent functional and cognitive assessments recorded at Department of Defense and Veterans Affairs (VA).VA Functional Jerauld Measurement (FIM) Scale: 1 = Total Assistance (Subject = 0% +), 2 = Maximal Assistance (Subject = 25% +), 3 = Moderate Assistance (Subject = 50% +), 4 = Minimal Assistance (Subject = 75% +), 5 = Supervision, 6 = Modified Jerauld (Device), 7 = Complete Jerauld (Timely, Safely). Assessment Date/Time Source Assessment Type Assessment Skill Assessment Score Assessment Details FUNCTIONAL 01/19/23 Home Dietary Supplements Captured No
--- NOTE | 2024-10-15 16:01 | ECG_ITS ---
Test Date: 2024-10-15 16:04:32 Measurements Intervals [place] Rate: 64 P: 63 AR: 139 QRS: 78 QRSD: 89 T: 33 QT: 359 QTc: 372 Interpretive Statements SINUS RHYTHM ST ELEVATION IN DIFFUSE LEADS, PROBABLY EARLY REPOLARIZATION BORDERLINE ECG No previous ECG available for comparison Electronically Signed On 10-15-2024 20:47:32 CDT by Neel Cm D.O.
[2024-10-15 16:11] VITALS: BP 135/92; PULSE 69; RESP 16; TEMP 36.6; O2SAT 99
[2024-10-15 16:24] LABS: Basophils Percent Auto 0.3 % (0.2-1.2); Eosinophils Percent Auto 0.6 % (0-4.4); Hematocrit 43.2 % (42.0-52.0); Hemoglobin 14.6 g/dL (14.0-18.0); Lymphocytes Absolute Auto 1.33 K/mm3 (0.9-3.2); Lymphocytes Percent Auto 37.8 % (18.3-44.2); Mean Corpuscular HGB Conc 33.8 g/dl (32-36); Mean Corpuscular Hemoglobin 29.6 pg (26-34); Mean Corpuscular Volume 87.4 fl (80-100); Mean Platelet Volume 9.4 fl (7.4-10.4); Monocytes Absolute Auto 0.4 K/mm3 (0.1-0.6); Monocytes Percent Auto 9.9 % (2.6-8.5); Neutrophils Absolute Auto 1.8 K/mm3 (1.3-6.7); Neutrophils Percent Auto 51.4 % (45.5-73.1); Platelet Count Result 202 k/mm3 (150-375); Red Blood Count 4.94 M/mm3 (4.6-6.20); Red Cell Distribution Width 12.3 % (11.5-14.5); White Blood Count 3.5 K/mm3 (4.5-10.0)
[2024-10-15 16:37] LABS: Alanine Aminotransferase 22 U/L (6-50); Albumin Level 4.6 g/dL (3.5-5.1); Alkaline Phosphatase 78 U/L (38-126); Anion Gap 9 mmol/L (4-12); Aspartate Amino Transferase 52 U/L (17-59); Bilirubin,Total 0.5 mg/dL (0.2-1.3); Blood Urea Nitrogen 13 mg/dL (9-20); Calcium 9.6 mg/dL (8.4-10.2); Carbon Dioxide 28 mmol/L (22-30); Chloride 104 mmol/L (98-107); Estimated CRCL calculation 81 ml/min; Estimated Glomerular Filt Rate > 60; Glucose 88 mg/dL (65-110); INR 1.1; Lipase 259 U/L (23-300); Prothrombin Time 14.2 Seconds (11.1-14.7); Sodium 141 mmol/L (137-145)
[2024-10-15 16:47] LABS: Troponin I < 0.012 ng/mL (0.000-0.034)
[2024-10-15 17:57] VITALS: BP 137/61; PULSE 67; RESP 23; O2SAT 100
[2024-10-15 18:02] VITALS: BP 106/83; PULSE 69; RESP 24; O2SAT 100
[2024-10-15] MEDS: KETOROLAC (*BKC) 60 MG/2 ML VIAL IM (18:26)
--- NOTE | 2024-10-15 18:26 | ED_ITS ---
HPI - Chest Pain General Chief Complaint: Chest Pain Stated Complaint: R Upper chest pain with rad to neck/back Time Seen by Provider: 10/15/24 17:59 Source: patient Mode of arrival: ambulatory Limitations: no limitations History of Present Illness HPI narrative: Patient is a 28 y/o male who presents to the ED with c/o R sided chest pain. Patient reports he has been having intermittent pain throughout his right upper chest since Tuesday. States the pain occasionally radiates through to his back and yesterday he had pain radiate up into his neck. He tried taking Tylenol yesterday which did improve his pain slightly. No other significant aggravating or alleviating factors. Does note he has been doing a different work out routine lately. Denies cough, cold sx's, fevers, SOB, pain or swelling in legs, hx of heart issues. Related Data Allergies Allergy/AdvReac Type Severity Reaction Status Date / Time No Known Allergies Allergy Verified 10/15/24 15:52 Review of Systems 2 Review of Systems: All systems reviewed & are unremarkable except as noted in HPI. All systems reviewed & are unremarkable except as noted in HPI and below Exam 2 Narrative: GENERAL: Well appearing, well-nourished, non-toxic, in no acute distress. HEAD: Normocephalic, atraumatic. RESPIRATORY: Airway patent, respirations nonlabored. Clear to auscultation bilaterally, no rales, rhonchi, wheezing. No focal lung sounds. CARDIOVASCULAR: Regular rate and rhythm without murmurs, rubs, or gallops. ABDOMINAL: Soft, nontender, nondistended. Normoactive BS. MUSCULOSKELETAL: Moves all extremities. No gross deformities. Very minimal upper right-sided anterior chest wall tenderness to palpation. No peripheral edema. No calf tenderness. SKIN: Warm, dry, normal color. NEURO: A&O X3. Speech clear. PSYCHIATRIC: Appropriate mood and affect. Normal interaction. Course Vital Signs Vital signs: Vital Signs Temperature 97.8 F 10/15/24 16:11 Pulse Rate 69 10/15/24 16:11 Respiratory Rate 16 10/15/24 16:11 Blood Pressure 135/92 H 10/15/24 16:11 Pulse Oximetry 99 10/15/24 16:11 Oxygen Delivery Room Air 10/15/24 16:11 Temperature 97.8 F 10/15/24 16:11 Pulse Rate 62 10/15/24 20:00 Respiratory Rate 29 H 10/15/24 20:00 Blood Pressure 126/44 L 10/15/24 20:00 Pulse Oximetry 100 10/15/24 20:00 Oxygen Delivery Room Air 10/15/24 18:00 MDM - Chest Pain MDM Narrative Medical decision making narrative: R upper chest pain/back/neck for several days EKG with early repolarization, no concerning ST changes. Troponin undetectable. Low suspicion for ACS. HEART score = 1 based on EKG PERC negative, low suspicion for PE. No evidence of DVT on exam. Denying shortness of breath. Remainder basic laboratory studies were unremarkable. Software Test Technician 1.3. CK was obtained as patient did report new workout routine with muscle pains. This resulted markedly elevated to 3662. Discussed this with patient, diagnosis of rhabdomyolysis. Advised will need IV fluid hydration and likely admission to hospital. Patient reports he does not wish to stay in the hospital. He states he is feeling anxious about being here and is ready to go. States he feels fine otherwise. Advised if patient wished to leave the facility, that he would need to sign out against medical advice. Discussed risks of signing AMA, including , disability, kidney/liver injury, worsening rhabdomyolysis, etc. Patient voiced understanding of risks and would still like to sign out AMA. He is alert oriented x4, of sound mind, capable of making his own decisions. AMA paperwork was signed. Advised patient to avoid further exercise, creatine supplements, and advised very close f/u with pcp for further eval and repeat lab check. Advised patient can return at any time to resume evaluation. Left the facility in stable condition. Medical Records Data Attestation: I reviewed the patient's medical records. Lab Data Attestation: I reviewed the patient's lab results. 10/15/24 16:12 10/15/24 16:12 Labs: Lab Results 10/15/24 Range/Units 16:12 WBC 3.5 L (4.5-10.0) K/mm3 RBC 4.94 (4.6-6.20) M/mm3 Hgb 14.6 (14.0-18.0) g/dL Hct 43.2 (42.0-52.0) % MCV 87.4 (80-100) fl MCH 29.6 (26-34) pg MCHC 33.8 (32-36) g/dl RDW 12.3 (11.5-14.5) % Plt Count 202 (150-375) k/mm3 MPV 9.4 (7.4-10.4) fl Immature Gran % (Auto) 0.0 (0-0.5) % Neut % (Auto) 51.4 (45.5-73.1) % Lymph % (Auto) 37.8 (18.3-44.2) % Fisher % (Auto) 9.9 H (2.6-8.5) % Eos % (Auto) 0.6 (0-4.4) % Baso % (Auto) 0.3 (0.2-1.2) % Lymph # (Auto) 1.33 (0.9-3.2) K/mm3 Fisher # (Auto) 0.4 (0.1-0.6) K/mm3 Eos # (Auto) 0.0 (0-0.3) K/mm3 Baso # (Auto) 0.0 (0.0-0.1) K/mm3 Abs Immat Gran (auto) 0.00 (0.00-0.031) K/mm3 Absolute Neuts (auto) 1.8 (1.3-6.7) K/mm3 Absolute Nucleated RBC 0.000 (0.0-0.012) K/mm3 Nucleated RBC % 0.0 (0.0-0.2) % PT 14.2 (11.1-14.7) Seconds INR 1.1 APTT 30.0 (22.3-36.8) Seconds Sodium 141 (137-145) mmol/L Potassium 4.0 (3.4-5.0) mmol/L Chloride 104 (98-107) mmol/L Carbon Dioxide 28 (22-30) mmol/L Anion Gap 9 (4-12) mmol/L BUN 13 (9-20) mg/dL Creatinine 1.30 (0.7-1.3) mg/dL Estim Creat Clear Calc 81 ml/min Estimated GFR > 60 (59 - ) Glucose 88 (65-110) mg/dL Calcium 9.6 (8.4-10.2) mg/dL Total Bilirubin 0.5 (0.2-1.3) mg/dL AST 52 (17-59) U/L ALT 22 (6-50) U/L Alkaline Phosphatase 78 (38-126) U/L Total Creatine Kinase 3662 H (55-170) U/L Troponin I < 0.012 (0.000-0.034) ng/mL Total Protein 8.0 (6.3-8.2) g/dL Albumin 4.6 (3.5-5.1) g/dL Lipase 259 (23-300) U/L Imaging Data Attestation: I personally reviewed and interpreted this imaging study as follows: Radiologist's impression: ITS Impressions Chest X-Ray 10/15/24 16:24 IMPRESSION: No acute cardiopulmonary process. ECG Data EKG #1: Attestation: I personally reviewed and interpreted this ECG as follows: ECG completion date: 10/15/24 ECG completion time: 16:04 EKG Interpretation: normal rate (64), sinus rhythm and non-specific ST changes (early repol) Discharge Plan Discharge Clinical Impression: Atypical chest pain Rhabdomyolysis Qualifiers: Rhabdomyolysis type: non-traumatic Qualified Code(s): M62.82 - Rhabdomyolysis Patient Disposition: Left Against Medical Advice Condition: Guarded Prognosis Instructions: Antibiotic Form, Angina (ED), Rhabdomyolysis (ED), Chest Wall Pain (ED) Additional Instructions: You were found to be in rhabdomyolysis today. It was recommended that you stay in the hospital for further evaluation and IV fluid hydration. You are declining this and leaving the hospital against medical advice. Stay very well hydrated at home. You will need to follow-up closely with a primary care doctor to have your labs repeated. Avoid working out any further until labs repeated, avoid any further creatine supplement. Patient Language: [place] Follow-up/Referrals: PHYSICIAN,SOCIAL MEDIA SPECIALIST [Primary Care Provider] - Ramirez Oconnor MD [Physician] - (PRIMARY CARE) Time of Disposition: 19:05 Quality HEART score for chest pain patients History: slightly suspicious ECG: non specific repolarization disturbance/LBTB/PM Age: < or = to 45 years Risk factors: no risk factors known Troponin: < or = to 1x normal limit Heart score: 1
[2024-10-15 19:14] LABS: Creatine Kinase 3662 U/L (55-170)
--- OUTSIDE RECORDS SUMMARY | 2024-10-15 19:19 | XMS_ITS | Clinical Summary ---
Author Organization [facility] Address [address] [place] [address] Care Team Providers Care Performance Test Engineer Name Role Phone [facility] ([facility]) Primary Care Provider Source Comments [facility] and Associated Physician Practices is amultiple site organization consisting of ambulatory clinics and hospital sitesin [place], [place], [place] and [place]. This disclosure is being madepursuant to the Care Everywhere program and may not contain all information available regarding this patient. Last updated 18.[facility] Allergies No known active allergies Medications * Be aware that medications may not be up to date on this document. Alwaysverify current medications with the patient. No known medications Social History Tobacco Use Types Packs/Day Years Used Date Smoking Tobacco: Never Assessed Sex and Gender Information Value Date Recorded Sex Assigned at Not on file Legal Sex Male 12:39 PM ICT DEVELOPMENT MANAGER Gender Identity Not on file Sexual Orientation Not on file Last Filed Vital Signs Vital Sign Reading Time Taken Comments Blood Pressure 100/70 05/03/2011 8:45 AM ICT DEVELOPMENT MANAGER Pulse 62 05/03/2011 8:45 AM ICT DEVELOPMENT MANAGER Temperature - - Respiratory Rate 16 05/03/2011 8:45 AM ICT DEVELOPMENT MANAGER Oxygen Saturation - - Inhaled Oxygen Concentration - - Weight 60.1 kg (132 lb 8 oz) 05/03/2011 8:43 AM ICT DEVELOPMENT MANAGER Height 164 cm (5' 4.57) 05/03/2011 8:44 AM ICT DEVELOPMENT MANAGER Body Mass Index 22.35 05/03/2011 8:43 AM ICT DEVELOPMENT MANAGER Plan of Treatment Health Maintenance Due Date [...] age to complete this topic Care Teams Performance Test Engineer Relationship Specialty Start Date End Date [facility] ([facility]) [address] [place] [id number] PCP - General 05/03/11
--- OUTSIDE RECORDS SUMMARY | 2024-10-15 19:19 | XMS_ITS | Clinical Summary ---
Author Organization [facility] Address [address] [place] [address] Care Team Providers Care Travograph Operator Name Role Phone Unavailable Primary Care Provider [...]
[2024-10-15 19:37] VITALS: BP 126/44; PULSE 60; RESP 12; O2SAT 100
--- NOTE | 2024-10-15 19:56 | PC.NURSE ---
Per TAMIKA Veras pt is requesting to leave AMA. RN went into pt room to have pt sign AMA paperwork and go over instructions to help pt due to his diagnosis and leaving AMA. Pt asks RN if he is going to if he does leave. RN states it is recommended you stay and that your condition may worsen if you don't. Pt states as long as I am not going to right now I want to leave. RN states we can't force him to stay but it is recommended. RN instructed pt that if he is gong to leave that he should stay hydrated at home and to follow up with PCP to have labs repeated. Rn further instructed pt to avoid working out ny further until labs are repeated and avoid any further creatine supplements. Pt verbalizes understanding and would still like to leave AMA at this time.
[2024-10-15 20:00] VITALS: BP 126/44; PULSE 62; RESP 29; O2SAT 100
== END 2024-10-15 20:02 | disposition left against medical advice (07) ==
PROVIDERS: Emergency Provider Physician Assistant
DX: M62.82 Rhabdomyolysis (principal); R07.89 Other chest pain
CPT/HCPCS: 36415; 71046; 80053; 82550; 83690; 84484; 85025; 85610; 85730; 93005; 96372; 99284; J1885

== ENCOUNTER 2024-10-19 06:48 | Observation (INO) | payer SELFPAY ==
[2024-10-19] VITALS (8 sets, daily range): BP systolic 118–134; BP diastolic 47–98; PULSE 57–68; RESP 16–18; TEMP 36.6–37; O2SAT 98–100; BMI 25.9
--- OUTSIDE RECORDS SUMMARY | 2024-10-19 06:50 | XMS_ITS | Clinical Summary ---
Author Organization [facility] Address [address] [place] [address] Care Team Providers Care Trans Router Name Role Phone [facility], Mother [facility] Child (Sihf) Primary Care Provider Source Comments [facility] and Associated Physician Practices is amultiple site organization consisting of ambulatory clinics and hospital sitesin [place], [place], [place] and [place]. This disclosure is being madepursuant to the Care Everywhere program and may not contain all information available regarding this patient. Last updated 18.[facility] Allergies No known active allergies Medications * Be aware that medications may not be up to date on this document. Alwaysverify current medications with the patient. No known medications Social History Tobacco Use Types Packs/Day Years Used Date Smoking Tobacco: Never Assessed Sex and Gender Information Value Date Recorded Sex Assigned at Not on file Legal Sex Male 12:39 PM SALES FLOOR MANAGER Gender Identity Not on file Sexual Orientation Not on file Last Filed Vital Signs Vital Sign Reading Time Taken Comments Blood Pressure 100/70 05/03/2011 8:45 AM SALES FLOOR MANAGER Pulse 62 05/03/2011 8:45 AM SALES FLOOR MANAGER Temperature - - Respiratory Rate 16 05/03/2011 8:45 AM SALES FLOOR MANAGER Oxygen Saturation - - Inhaled Oxygen Concentration - - Weight 60.1 kg (132 lb 8 oz) 05/03/2011 8:43 AM SALES FLOOR MANAGER Height 164 cm (5' 4.57) 05/03/2011 8:44 AM SALES FLOOR MANAGER Body Mass Index 22.35 05/03/2011 8:43 AM SALES FLOOR MANAGER Plan of Treatment Health Maintenance Due [...] age to complete this topic Care Teams Trans Router Relationship Specialty Start Date End Date [facility] Child ([facility]ihf) [address] [place] [id number] PCP - General 05/03/11
--- OUTSIDE RECORDS SUMMARY | 2024-10-19 06:50 | XMS_ITS | Clinical Summary ---
Author Organization [facility] Address [address] [place] [address] Care Team Providers Care Business Intelligence Analyst Name Role Phone Unavailable Primary Care Provider [...]
--- OUTSIDE RECORDS SUMMARY | 2024-10-19 07:48 | XMS_ITS | Clinical Summary ---
Author Organization [facility] Address [address] [facility] [place] [address] Care Team Providers Care Small Products Ii Assembler Name Role Phone Unavailable Primary Care Provider [...]
--- OUTSIDE RECORDS SUMMARY | 2024-10-19 07:48 | XMS_ITS | Clinical Summary ---
Author Organization [facility] Address [address] 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 This disclosure is being madepursuant to the Care Everywhere program and may not contain all information available regarding this patient. Last updated 18.[facility] [address] Allergies No known active allergies Medications * Be aware that medications may not be up to date on this document. Alwaysverify current medications with the patient. 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 Gender Identity Not on file Sexual Orientation Not on file Last Filed Vital Signs Vital Sign Reading Time Taken Comments Blood Pressure 100/70 05/03/2011 8:45 AM RETAIL FIELD SUPERVISOR Pulse 62 05/03/2011 8:45 AM RETAIL FIELD SUPERVISOR Temperature - - Respiratory Rate 16 05/03/2011 8:45 AM RETAIL FIELD SUPERVISOR Oxygen Saturation - - Inhaled Oxygen Concentration - - Weight 60.1 kg (132 lb 8 oz) 05/03/2011 8:43 AM RETAIL FIELD SUPERVISOR Height 164 cm (5' 4.57) 05/03/2011 8:44 AM RETAIL FIELD SUPERVISOR Body Mass Index 22.35 05/03/2011 8:43 AM RETAIL FIELD SUPERVISOR Plan of Treatment Health Maintenance Due Date [...] age to complete this topic Care Teams Name Plate Stamping Machine Operator Relationship Specialty Start Date End Date [facility] Child ([facility]ih[facility]) [address] [place] [id number] PCP - General 05/03/11
[2024-10-19 07:55] LABS: Basophils Percent Auto 0.6 % (0.2-1.2); Eosinophils Absolute Auto 0.1 K/mm3 (0-0.3); Eosinophils Percent Auto 1.9 % (0-4.4); Hematocrit 43.6 % (42.0-52.0); Hemoglobin 14.6 g/dL (14.0-18.0); Immature Granulocyte Absolute 0.03 K/mm3 (0.00-0.031); Immature Granulocyte Percent A 0.6 % (0-0.5); Lymphocytes Absolute Auto 2.44 K/mm3 (0.9-3.2); Lymphocytes Percent Auto 52.2 % (18.3-44.2); Mean Corpuscular HGB Conc 33.5 g/dl (32-36); Mean Corpuscular Hemoglobin 29.3 pg (26-34); Mean Corpuscular Volume 87.6 fl (80-100); Mean Platelet Volume 9.3 fl (7.4-10.4); Monocytes Absolute Auto 0.5 K/mm3 (0.1-0.6); Monocytes Percent Auto 10.9 % (2.6-8.5); Neutrophils Absolute Auto 1.6 K/mm3 (1.3-6.7); Neutrophils Percent Auto 33.8 % (45.5-73.1); Platelet Count Result 208 k/mm3 (150-375); Red Blood Count 4.98 M/mm3 (4.6-6.20); Red Cell Distribution Width 12.3 % (11.5-14.5); White Blood Count 4.7 K/mm3 (4.5-10.0)
[2024-10-19 08:03] LABS: Alanine Aminotransferase 23 U/L (6-50); Albumin Level 4.6 g/dL (3.5-5.1); Alkaline Phosphatase 84 U/L (38-126); Anion Gap 10 mmol/L (4-12); Aspartate Amino Transferase 55 U/L (17-59); Bilirubin,Total 0.5 mg/dL (0.2-1.3); Blood Urea Nitrogen 13 mg/dL (9-20); Carbon Dioxide 25 mmol/L (22-30); Chloride 104 mmol/L (98-107); Estimated CRCL calculation 85 ml/min; Estimated Glomerular Filt Rate > 60; Glucose 92 mg/dL (65-110); Potassium 4.3 mmol/L (3.4-5.0); Sodium 139 mmol/L (137-145); Total Protein 8.3 g/dL (6.3-8.2)
--- NOTE | 2024-10-19 08:18 | ED_ITS ---
HPI - General Adult General Chief complaint: Recheck/Abnormal Lab/Rx Stated complaint: CK recheck Time Seen by Provider: 10/19/24 07:08 History of Present Illness HPI narrative: Patient is a 28-year-old male who presents ER for further evaluation of rhabdomyolysis. Recently diagnosed with rhabdo and signed out AMA. He went home and drank a lot of Pedialyte as well as liquid IVs. He reports he has had clear urine. Body aches have decreased. He is not using his creatinine supplement. Related Data Allergies Allergy/AdvReac Type Severity Reaction Status Date / Time No Known Allergies Allergy Verified 10/19/24 06:49 Review of Systems 2 Review of Systems: All systems reviewed & are unremarkable except as noted in HPI and below Constitutional: Constitutional: Reports no additional constitutional complaints Cardiovascular: Cardiovascular: Reports no additional cardiovascular complaints Respiratory: Respiratory: Reports no additional respiratory complaints Musculoskeletal: Musculoskeletal: Reports no additional musculoskeletal complaints [facility] Past Medical History Medical History (Updated 10/19/24 @ 12:15 by Charles Lopes MD) Healthy adult male Social History Social History Smoking status: Former smoker Alcohol intake: never Substance use: never Do You Feel Safe in your Home?: Yes Lack of Transportation: No Lack of Food: Never True Current Housing: Decline to Answer Concerned About Future Housing: Decline to Answer Difficulty Paying Gas/Electric Bills: Decline to Answer Difficulty Paying for Meds: Decline to Answer Currently Unemployed: Decline to Answer Education: Decline to Answer Difficulty w/ Childcare or Family Care: Decline to Answer Spiritual care concerns: No Exam 2 Narrative: GENERAL: Well-appearing, well-nourished, and in no acute distress. HEAD: Normocephalic, atraumatic. ENT: Mucous membranes moist. CHEST: Clear to auscultation. No respiratory distress. HEART: Regular rate and rhythm. Normal peripheral pulses. ABDOMEN: Soft, nontender, nondistended. EXTREMITIES: Normal range of motion. No edema. NEURO: Alert and oriented x3. PSYCH: Normal mood and affect. Course Course Emergency Course: CK still elevated despite aggressive hydration. Admit for observation and continued hydration. Vital Signs Vital signs: Vital Signs Temperature 98.6 F 10/19/24 06:53 Pulse Rate 68 10/19/24 06:53 Respiratory Rate 17 10/19/24 06:53 Blood Pressure 134/50 L 10/19/24 06:53 Pulse Oximetry 99 10/19/24 06:53 Oxygen Delivery Room Air 10/19/24 06:53 Temperature 97.8 F 10/19/24 11:38 Pulse Rate 65 10/19/24 11:38 Respiratory Rate 16 10/19/24 11:38 Blood Pressure 118/58 L 10/19/24 11:38 Pulse Oximetry 98 10/19/24 11:38 Oxygen Delivery Room Air 10/19/24 16:47 Medical Decision Making Vital Signs Vital Signs: Vital Signs Temperature 98.6 F 10/19/24 06:53 Pulse Rate 68 10/19/24 06:53 Respiratory Rate 17 10/19/24 06:53 Blood Pressure 134/50 L 10/19/24 06:53 Pulse Oximetry 99 10/19/24 06:53 Oxygen Delivery Room Air 10/19/24 06:53 Temperature 97.8 F 10/19/24 11:38 Pulse Rate 65 10/19/24 11:38 Respiratory Rate 16 10/19/24 11:38 Blood Pressure 118/58 L 10/19/24 11:38 Pulse Oximetry 98 10/19/24 11:38 Oxygen Delivery Room Air 10/19/24 16:47 Lab Data 10/19/24 07:41 10/19/24 07:41 Labs: Lab Results 10/19/24 10/19/24 Range/Units 07:41 10:43 WBC 4.7 (4.5-10.0) K/mm3 RBC 4.98 (4.6-6.20) M/mm3 Hgb 14.6 (14.0-18.0) g/dL Hct 43.6 (42.0-52.0) % MCV 87.6 (80-100) fl MCH 29.3 (26-34) pg MCHC 33.5 (32-36) g/dl RDW 12.3 (11.5-14.5) % Plt Count 208 (150-375) k/mm3 MPV 9.3 (7.4-10.4) fl Immature Gran % (Auto) 0.6 H (0-0.5) % Neut % (Auto) 33.8 L (45.5-73.1) % Lymph % (Auto) 52.2 H (18.3-44.2) % [place] % (Auto) 10.9 H (2.6-8.5) % Eos % (Auto) 1.9 (0-4.4) % Baso % (Auto) 0.6 (0.2-1.2) % Lymph # (Auto) 2.44 (0.9-3.2) K/mm3 [place] # (Auto) 0.5 (0.1-0.6) K/mm3 Eos # (Auto) 0.1 (0-0.3) K/mm3 Baso # (Auto) 0.0 (0.0-0.1) K/mm3 Abs Immat Gran (auto) 0.03 (0.00-0.031) K/mm3 Absolute Neuts (auto) 1.6 (1.3-6.7) K/mm3 Absolute Nucleated RBC 0.000 (0.0-0.012) K/mm3 Nucleated RBC % 0.0 (0.0-0.2) % Sodium 139 (137-145) mmol/L Potassium 4.3 (3.4-5.0) mmol/L Chloride 104 (98-107) mmol/L Carbon Dioxide 25 (22-30) mmol/L Anion Gap 10 (4-12) mmol/L BUN 13 (9-20) mg/dL Creatinine 1.24 (0.7-1.3) mg/dL Estim Creat Clear Calc 85 ml/min Estimated GFR > 60 (59 - ) Glucose 92 (65-110) mg/dL Calcium 10.0 (8.4-10.2) mg/dL Total Bilirubin 0.5 (0.2-1.3) mg/dL AST 55 (17-59) U/L ALT 23 (6-50) U/L Alkaline Phosphatase 84 (38-126) U/L Total Creatine Kinase 2239 H 1555 H (55-170) U/L Total Protein 8.3 H (6.3-8.2) g/dL Albumin 4.6 (3.5-5.1) g/dL Discharge Plan Discharge Clinical Impression: Rhabdomyolysis Patient Disposition: Still a Patient Condition: Stable
[2024-10-19 08:33] LABS: Creatine Kinase 2239 U/L (55-170)
[2024-10-19] MEDS: SODIUM CHLORIDE 0.9% IV 1,000 ML 999 ML IV CONT ×3 (08:52→22:59)
[2024-10-19 11:01] LABS: Creatine Kinase 1555 U/L (55-170)
[2024-10-19] MEDS: SODIUM CHLORIDE 0.9% IV 1,000 ML 200 ML IV CONT (11:30)
--- NOTE | 2024-10-19 12:31 | P.HP_ITS ---
H&P: HPI History of Present Illness Date/Time: 10/19/24 12:31 Chief Complaint: Rhabdomyolysis Narrative: 28-year-old previously healthy male presents the hospital with rhabdomyolysis. Patient was seen in the emergency room on 10/15/2024 and was diagnosed with rhabdomyolysis. The patient has decided to leave AMA an try aggressive fluid hydration at home. He states that he planned on an active weekend and wanted to check his CK prior. In the ED his CK was 2239 patient received 2 L normal saline with recheck at 1555. Patient agree to medical admission for further management of rhabdomyolysis. Patient states that he sleeps about 8 hours a night and is very physically active. He states that he started taking a new creatine supplement supplement also had pre workout in it. Last Tuesday he started using 2 scoops and do not increase his water intake. He states that he did his regular workout. On Tuesday he started feeling muscle pains which did not improve so he presented to the hospital. Review of Systems Review of Systems: 12 systems were reviewed and are negativ e except for as per HPI. [facility] Past Medical History Medical History (Updated 10/19/24 @ 12:15 by Charles Lopes MD) Healthy adult male Social History Social History Smoking status: Former smoker Alcohol intake: never Substance use: never Do You Feel Safe in your Home?: Yes Lack of Transportation: No Lack of Food: Never True Current Housing: Decline to Answer Concerned About Future Housing: Decline to Answer Difficulty Paying Gas/Electric Bills: Decline to Answer Difficulty Paying for Meds: Decline to Answer Currently Unemployed: Decline to Answer Education: Decline to Answer Difficulty w/ Childcare or Family Care: Decline to Answer Spiritual care concerns: No Meds Home Medications and Allergies Allergies Allergy/AdvReac Type Severity Reaction Status Date / Time No Known Allergies Allergy Verified 10/19/24 06:49 Vital Signs Vital Signs - 24 hr 10/19/24 06:53 10/19/24 06:57 10/19/24 06:57 Temperature 98.6 F Pulse Rate 68 Respiratory Rate 17 16 Blood Pressure 134/50 L 134/50 L Pulse Oximetry 99 99 100 Oxygen Delivery Room Air 10/19/24 07:02 10/19/24 07:17 10/19/24 07:43 Temperature Pulse Rate Respiratory Rate Blood Pressure 128/68 133/98 H 126/67 Pulse Oximetry 100 100 Oxygen Delivery 10/19/24 08:01 10/19/24 11:38 Temperature 97.8 F Pulse Rate 65 Respiratory Rate 16 Blood Pressure 124/78 118/58 L Pulse Oximetry 99 98 Oxygen Delivery Exam Narrative: General: well appearing, appears stated age. HEENT: normocephalic, atraumatic. Mucous membranes moist. EOMI, PERRLA, bilateral sclera anicteric, no conjunctival injection. Neck supple without JVD, lymphadenopathy, or bruit. Respiratory: clear to ascultation bilaterally. No rales/rhonic/wheezes. Cardiovascular: Regular rate and rhythm, normal S1-S2 upon ascultation. No murmurs, rubs, or clicks. PMI is nondisplaced, capillary refill less than 3 second. Abdomen: Soft, round, no pulsatile masses, nondistended and nontender. No rebound, no guarding. No CVA tenderness, no hepatosplenomegaly. Bowel sounds present to all four quadrants. No high pitch or tinkling sounds, resonant to percussion. Extremities: No cyanosis, clubbing, or edema present. Pulses are palpable 2/2. Active ROM to all four extremities. Neuro: Alert and orientated x 4. PERRLA. Cranial nerves 2-12 intact without focal deficit. Skin: Warm, dry, and intact, without rash, erythema, or lesion. Psych: pleasant, cooperative, normal speech, normal affect, no hallucinations, no dysarthia H&P: Results Labs Labs: Short CBC 10/19/24 Range/Units 07:41 WBC 4.7 (4.5-10.0) K/mm3 Hgb 14.6 (14.0-18.0) g/dL Hct 43.6 (42.0-52.0) % Plt Count 208 (150-375) k/mm3 BMP 10/19/24 07:41 Sodium 139 Potassium 4.3 Chloride 104 Carbon Dioxide 25 BUN 13 Creatinine 1.24 Glucose 92 Calcium 10.0 Cardiac Enzymes 10/19/24 10/19/24 Range/Units 07:41 10:43 Total Creatine Kinase 2239 H 1555 H (55-170) U/L Liver Function 10/19/24 Range/Units 07:41 Total Bilirubin 0.5 (0.2-1.3) mg/dL AST 55 (17-59) U/L ALT 23 (6-50) U/L Alkaline Phosphatase 84 (38-126) U/L Albumin 4.6 (3.5-5.1) g/dL Assessment and Plan Assessment and plan (1) Rhabdomyolysis: Code(s): M62.82 - Rhabdomyolysis Status: Acute Assessment and Plan: 2 L IV fluids received in ED Repeat CK in a.m. Aggressive fluid hydration with IV and oral Patient educated on not taking pre workout, not doing max dose of supplements, and adequate fluid hydration Quality VTE Prophylaxis VTE prophylaxis: mechanical ordered If No VTE Prophylaxis Answer both mechanical and pharmacologic: Reason no pharmacologic proph: low risk/not indicated Hospitalist MIPS Advance Care Plan I have confirmed that the patient's Advanced Care Plan is present, code status is documented, or surrogate decision maker is listed in patient medical record.: Yes Medication Reconciliation I have utilized all available resources to obtain, update and review the patients current medications (includes all prescriptions, OTC, herbals, cannabis, and nutritional supplements).: Yes
--- NOTE | 2024-10-19 13:47 | ADMGEN ---
This patient, Valerio Chan, was admitted to Medical Room 347-. Patient/family oriented to hospital policies and general routines including ID bracelet, bed and alarms, visiting hours, pain management, procedures, bathroom and other care routines, personal items, smoking policy, room service/diet, and visiting hours. Information on how to activate the Rapid Response Team has been discussed. Patient/Family are encouraged to report perceived risks to care and to ask questions if they do not understand what they are told or what they should do.
[2024-10-20 05:36] LABS: Basophils Percent Auto 0.5 % (0.2-1.2); Eosinophils Absolute Auto 0.1 K/mm3 (0-0.3); Eosinophils Percent Auto 1.6 % (0-4.4); Hematocrit 42.1 % (42.0-52.0); Lymphocytes Absolute Auto 2.43 K/mm3 (0.9-3.2); Lymphocytes Percent Auto 62.8 % (18.3-44.2); Mean Corpuscular HGB Conc 33.3 g/dl (32-36); Mean Corpuscular Hemoglobin 29.2 pg (26-34); Mean Corpuscular Volume 87.7 fl (80-100); Mean Platelet Volume 9.3 fl (7.4-10.4); Monocytes Absolute Auto 0.4 K/mm3 (0.1-0.6); Monocytes Percent Auto 10.6 % (2.6-8.5); Neutrophils Percent Auto 24.5 % (45.5-73.1); Platelet Count Result 195 k/mm3 (150-375); Red Cell Distribution Width 12.3 % (11.5-14.5); White Blood Count 3.9 K/mm3 (4.5-10.0)
[2024-10-20 06:00] VITALS: BP 120/60; PULSE 79; RESP 18; TEMP 36.6; O2SAT 98
[2024-10-20 06:12] LABS: Anion Gap 10 mmol/L (4-12); Blood Urea Nitrogen 7 mg/dL (9-20); Calcium 9.6 mg/dL (8.4-10.2); Carbon Dioxide 24 mmol/L (22-30); Chloride 107 mmol/L (98-107); Creatine Kinase 1067 U/L (55-170); Estimated CRCL calculation 89 ml/min; Estimated Glomerular Filt Rate > 60; Glucose 92 mg/dL (65-110); Potassium 4.2 mmol/L (3.4-5.0); Sodium 141 mmol/L (137-145)
[2024-10-20 08:00] VITALS: PULSE 79; RESP 18; O2SAT 98
--- NOTE | 2024-10-20 12:44 | P.DS_ITS ---
DS: Admitting Diagnosis Discharge Date 10/20/2024 Admitting Diagnosis rhabdomyolysis DS: Discharge Diagnosis Discharge Diagnosis (1) Rhabdomyolysis: Code(s): M62.82 - Rhabdomyolysis Status: Acute Plan Discharged to home DS: Summary Hospital Course Reason for hospitalization: rhabdomyolysis Hospital Course: Patient was [id number] male presents the hospital with complaints of worsening muscle pain. Patient was seen in the emergency room on 10/15/2024 and was diagnosed with rhabdomyolysis. The patient has decided to leave AMA an try aggressive fluid hydration at home. He states that he planned on an active weekend and wanted to check his CK prior. In the ED his CK was 2239 patient received 2 L normal saline with recheck at 1555. Patient was admitted to the medical unit on aggressive IV fluid resuscitation for his rhabdomyolysis. Patient states that he sleeps about 8 hours a night and is very physically active. He states that he started taking a new creatine supplement supplement also had pre workout in it. Last Tuesday he started using 2 scoops and do not increase his water intake. He states that he did his regular workout. patient improved overnight with aggressive IV hydration reported muscle pains had improved he was ambulatory, alert and tolerating all oral intake with lipase improving to a 1000. Patient was discharged home and advised to continue with aggressive oral hydration of water as well as a limiting his peak workout drink and reducing the amount that he works out. patient discharged home cherelle lorenzana agreed with discharge plan. Status at Discharge Functional status at discharge: independent ambulation Overall status at discharge: patient is back to baseline Time Spent with Patient Time attestation: Total time spent providing and/or coordinating discharge services: Time spent: Greater than 30 minutes Exam Narrative: General: NAD HEENT: normocephalic, Respiratory: clear to auscultation Cardiovascular: RRR Abdomen: Soft, round, Extremities: Active ROM to all four extremities. Neuro: Alert and orientated Skin: Warm, dry, Psych: pleasant, cooperative DS: Data Data Completed and Pending Labs on day of discharge: Labs from last 24 hours 10/20/24 05:22 WBC 3.9 L RBC 4.80 Hgb 14.0 Hct 42.1 MCV 87.7 MCH 29.2 MCHC 33.3 RDW 12.3 Plt Count 195 MPV 9.3 Immature Gran % (Auto) 0.0 Neut % (Auto) 24.5 L Lymph % (Auto) 62.8 H [place] % (Auto) 10.6 H Eos % (Auto) 1.6 Baso % (Auto) 0.5 Lymph # (Auto) 2.43 [place] # (Auto) 0.4 Eos # (Auto) 0.1 Baso # (Auto) 0.0 Abs Immat Gran (auto) 0.00 Absolute Neuts (auto) 1.0 L Absolute Nucleated RBC 0.000 Nucleated RBC % 0.0 Sodium 141 Potassium 4.2 Chloride 107 Carbon Dioxide 24 Anion Gap 10 BUN 7 L D Creatinine 1.18 Estim Creat Clear Calc 89 Estimated GFR > 60 Glucose 92 Calcium 9.6 Total Creatine Kinase 1067 H Discharge Plan Discharge Attending physician on discharge: Walter Camargo Consulting providers: Aimee Bal; Manda Arita Discharging Clinician: Aimee Bal Anticipated Discharge Date/Time: 10/20/24 11:44 Patient Disposition: Home Activity: may shower and as tolerated Diet: regular Discharge Instructions: rhabdomyolysis * encourage aggressive oral hydration * avoid excessive heat * avoid excessive exercise routines * recommend discontinuing pre workout powder * if symptoms return please seek medical attention Patient Instructions: Antibiotic Form, Rhabdomyolysis (DC) Patient Language: Greek Stand Alone Forms: General Discharge Information Follow-up/Referrals: PHYSICIAN,EDUCATION FACULTY MEMBER [Primary Care Provider] - Call for Appointment ( follow-up with primary care physician as needed) Other Ambulatory Orders: Creatine Kinase (Routine) Timeframe: 1 Week Location: Determined by Patient Ordered By: Aimee Bal Date of admission: 10/19/24 12:17 Primary Care Provider: PHYSICIAN,EDUCATION FACULTY MEMBER Admitting Provider: Eliza Foster Attending physician on admission: Walter Camargo Condition: Stable Quality VTE Prophylaxis VTE prophylaxis: mechanical ordered -Patient's previous records reviewed on admission -ER notes reviewed in detail on admission -discussed all findings and current treatment plan with patient/Family/POA -Consultations reviewed for recommendations -Patient's disposition for safe discharge discussed with pillowcase cutter Dictation performed by [employer] direct speech recognition software, therefore advertising agent variants and typographical errors may occur. Hospitalist MIPS Heart Failure (Exclusion) Patient has history of Heart Transplant or Left Ventricular Assistive Device?: No IF YES, STOP HERE Heart Failure (Qualifier) Patient has current or prior documentation of LVEF less than or equal to 40%, or mod/servere depressed LVSF?: No IF NO, STOP HERE
== END 2024-10-20 12:45 | disposition home or self-care (01) ==
LOC: ANHED 12:15 → ANH3MED 16:20
PROVIDERS: Nurse Practitioner Gerontology; Admitting Provider Family Medicine; Emergency Provider Emergency Medicine; Visit Provider General Practice
DX: M62.82 Rhabdomyolysis (principal); Z87.891 Personal history of nicotine dependence
CPT/HCPCS: 36415; 80048; 80053; 82550; 85025; 96361; 96374; 99285; G0378; G0379; J7030